=== PATIENT | male | born 1970 | race Caucasian/White ===

== ENCOUNTER 2017-01-04 05:00 | Day surgery (SDC) | payer BC ==
[~2017-01-04 05:00] MED LIST: BUSPAR 15 MG TA15 MG PO; DESVENLAFAX; HYDROCODONE-APA1 TAB PO; VOLTAREN75 MG PO
[2017-01-04 06:15] VITALS: BP 117/73; BMI 26.9
--- NOTE | 2017-01-04 19:20 | NUR ---
1030--IV DC'D, PT UP TO DRESS. LLOYD KWAN 1050--DISCHARGE INSTRUCTIONS GIVEN, PT VERBALIZES UNDERSTANDING. PT OFF UNIT VIA WC. LLOYD KWAN
--- NOTE | 2017-01-11 11:13 | OP ---
PATIENT NAME: JOYCE RAYMUNDO MEDICAL RECORD: [id number] :72 LOCATION:D.OPS ADMISSION DATE: SURGEON: AC NGUYEN DPM DATE OF OPERATION: 01/04/2017 PREOPERATIVE DIAGNOSES: 1. Bone spur lateral aspect of left foot. 2. Bone spur dorsal aspect left proximal foot including: A. Bone spur lateral CC joint. B. Bone spur dorsal lateral talonavicular joint. POSTOPERATIVE DIAGNOSES: 1. Bone spur lateral aspect of left foot. 2. Bone spur dorsal aspect left proximal foot including: A. Bone spur lateral CC joint. B. Bone spur dorsal lateral talonavicular joint. PROCEDURES: 1. Excision of bone spur, lateral CC joint. 2. Excision of bone spur talonavicular joint. ANESTHESIA: Local with IV sedation utilizing lidocaine and Marcaine, approximately 10 cc total on the surgical sites. HEMOSTASIS: Left ankle tourniquet at 250 mmHg. PREOPERATIVE DETAILS: The patient was taken to the OR and placed on the operating table in supine position. This was followed by induction of general anesthesia and infiltration of local anesthetic. The left extremity was then prepped and draped in usual aseptic technique followed by exsanguination of extremity and inflation of tourniquet. PROCEDURE #1: Bone spur removal lateral CC joint, left foot. A 15-blade was used to create a 3-cm linear incision over the lateral aspect of the calcaneocuboid joint. The incision was deepened down through subcutaneous tissue being sure to avoid all vital structures. A periosteal incision was then made. The bone spur was visualized and removed the rongeur as well as osteotome and mallet. Excellent reduction of the enlargement was noted clinically, wound was flushed. The deep tissue was closed with 2-0 Vicryl. The subcutaneous tissue with 3-0 Rapide and the skin was closed with 3-0 Rapide in a subcuticular technique followed by Dermabond. PROCEDURE #2: Bone spur excision, talonavicular joint. A 15 blade was used to create a 3-cm linear incision over the dorsal aspect of the lateral talonavicular joint. The incision deepened down through subcutaneous tissue to the extensor retinaculum, which was incised sharply. A periosteal incision was then made freeing the dorsal aspect of the talonavicular joint on the lateral aspect. An osteotome and mallet was used to resect the bone spurring of the talus and the navicular, smoothed with a bone rasp. Wound was flushed. Deep tissue was repaired with 2-0 Vicryl, the subcutaneous tissue with 3-0 Rapide and the skin was closed with 3-0 Rapide in a subcuticular technique followed by Dermabond. Adaptic, 4 x 4 and Conform were used to dress the wound followed by Coban. Tourniquet was deflated. POSTOPERATIVE DETAILS: The patient tolerated the procedure well and left the OR OPERATIVE REPORT [id number] JOYCE RAYMUNDO with vital signs stable and vascular status at preop levels. The patient was transported to recovery per anesthesia in stable condition. TRANSINT:[id number] Voice Confirmation ID: [id number] DOCUMENT ID: [id number] AC NGUYEN DPM at 1113 CC: [id number] DICTATION DATE: 01/04/17 0836 [facility]: 01/04/[address] [facility] 01/04/17 [id number] [place] [address]
== END 2017-01-04 10:50 | disposition home or self-care (01) ==
LOC: D.OPS 05:00 → D.PAN 07:00 → D.OPS 07:00
DX: M77.52 Other enthesopathy of left foot and ankle (principal); M77.32 Calcaneal spur, left foot; Z01.812 Encounter for preprocedural laboratory examination